=== PATIENT | female | born 1995 | race American Indian/Alaskan Native ===

== ENCOUNTER 2021-01-26 22:44 | Emergency (ER) | payer SELFPAY ==
[2021-01-26 23:40] VITALS: BP 121/75
--- NOTE | 2021-01-26 23:49 | XRay Report ---
CHEST 2 VIEWS INDICATION / CLINICAL INFORMATION: chest pain. FINDINGS: SUPPORT DEVICES: None. HEART / MEDIASTINUM: No significant abnormality. LUNGS / PLEURA: No significant pulmonary or pleural abnormality. No pneumothorax. ADDITIONAL FINDINGS: No significant additional findings. IMPRESSION: 1. No acute findings. Signer Name: Christopher Gama MD Signed: 01/26/2021 11:44 PM Workstation Name: [id number]
[2021-01-27] MEDS ORDERED: FAMOTIDINE 20 MG TAB PO ONE (01:45)
[2021-01-27] MEDS ORDERED: LIDOCAINE VISCOUS 2% 15 ML ORAL LIQD PO ONE (01:45)
[2021-01-27] MEDS ORDERED: ALUM-MAG HYDROXIDE-SIMETHICONE 200-200-20MG/5ML ORAL LIQD 30 ML PO ONE (01:45)
[2021-01-27] MEDS ORDERED: ONDANSETRON 4 MG ODT TAB PO ONE (02:16)
[2021-01-27] MEDS ORDERED: DICYCLOMINE 20 MG TAB PO ONE (02:16)
--- NOTE | 2021-01-27 02:21 | Emergency Department Report ---
ED N/V/D HPI - General Chief complaint: Chest Pain Stated complaint: CHEST PAIN/EMESIS Source: patient Mode of arrival: Ambulatory Limitations: No Limitations - History of Present Illness Initial comments: Patient is a A1 25-year-old -[place] female with no past medical history presents to the ED with complaint of acute onset persistent nausea and vomiting and epigastric pain for the last 3 hours after eating seafood at a restaurant 8 hours ago. Patient states that she has had up to 4 episodes of nausea and vomiting and that the pain in the epigastric area has been persistent and worse with vomiting with a burning sensation. Patient denies diarrhea, dysuria, urinary frequency and urgency, chest pain, shortness of breath, cough, sore throat, headache, dizziness, syncope, vaginal discharge, back pain, hematemesis or hematochezia. Patient states that she is currently on her menstrual cycle. MD complaint: nausea, vomiting, abdominal pain (epigastric pain) -: Sudden, hour(s) (3) Description of Vomiting: food contents, watery Associated Abdominal Pain: Yes (epigastric pain burning pain) Location: epigastric Radiation: none Severity: moderate Pain Scale: 6 Quality: aching, sharp Consistency: constant Improves with: medication Worsens with: vomiting Context: possible food poisoning Associated Symptoms: denies other symptoms, loss of appetite, nausea/vomiting, other (Epigastric pain). denies: myalgias, chest pain, cough, diaphoresis, fever/chills, headaches, malaise, rash, dysuria, shortness of breath, syncope, weakness - Related Data Previous Rx's Medication Instructions Recorded Last Taken Type Dicyclomine [Bentyl] 20 mg PO Q6H PRN #20 tablet 01/27/21 Unknown Rx Famotidine [Pepcid] 20 mg PO BID #30 tablet 01/27/21 Unknown Rx Ondansetron [Zofran Odt] 4 mg PO Q8HR PRN #20 tab.rapdis 01/27/21 Unknown Rx Allergies Allergy/AdvReac Type Severity Reaction Status Date / Time No Known Allergies Allergy Unverified 01/26/21 23:11 ED Review of Systems ROS: Stated complaint: CHEST PAIN/EMESIS Other details as noted in HPI Constitutional: denies: chills, fever Eyes: denies: eye pain, eye discharge, vision change ENT: denies: ear pain, throat pain Respiratory: denies: cough, shortness of breath, wheezing Cardiovascular: denies: chest pain, palpitations Endocrine: no symptoms reported Gastrointestinal: abdominal pain (Epigastric pain), nausea, vomiting. denies: diarrhea Genitourinary: denies: urgency, dysuria, discharge Musculoskeletal: denies: back pain, joint swelling, arthralgia Skin: denies: rash, lesions Neurological: denies: headache, weakness, paresthesias Psychiatric: denies: anxiety, depression Hematological/Lymphatic: denies: easy bleeding, easy bruising ED Past Medical Hx - Past Medical History Previous Medical History?: No - Surgical History Past Surgical History?: No - Social History Smoking Status: Never Smoker Substance Use Type: None - Medications Home Medications: Home Medications Medication Instructions Recorded Confirmed Last Taken Type Dicyclomine [Bentyl] 20 mg PO Q6H PRN #20 tablet 01/27/21 Unknown Rx Famotidine [Pepcid] 20 mg PO BID #30 tablet 01/27/21 Unknown Rx Ondansetron [Zofran Odt] 4 mg PO Q8HR PRN #20 tab.rapdis 01/27/21 Unknown Rx ED Physical Exam - General Limitations: No Limitations General appearance: alert, in no apparent distress - Head Head exam: Present: atraumatic, normocephalic, normal inspection - Eye Eye exam: Present: normal appearance, PERRL, EOMI Pupils: Present: normal accommodation - ENT ENT exam: Present: normal exam, normal orophraynx, mucous membranes moist, TM's normal bilaterally, normal external ear exam - Neck Neck exam: Present: normal inspection, full ROM - Respiratory Respiratory exam: Present: normal lung sounds bilaterally. Absent: respiratory distress, wheezes, rales, chest wall tenderness, accessory muscle use, prolonged expiratory - Cardiovascular Cardiovascular Exam: Present: regular rate, normal rhythm, normal heart sounds. Absent: systolic murmur, diastolic murmur, rubs, gallop - GI/Abdominal GI/Abdominal exam: Present: soft, tenderness (Palpable mild epigastric tenderness), normal bowel sounds. Absent: distended, guarding, rebound, hyperactive bowel sounds, hypoactive bowel sounds, mass - Extremities Exam Extremities exam: Present: normal inspection, full ROM, normal capillary refill - Back Exam Back exam: Present: normal inspection, full ROM. Absent: tenderness, CVA tenderness (R), CVA tenderness (L), muscle spasm, paraspinal tenderness - Neurological Exam Neurological exam: Present: alert, oriented X3, CN II-XII intact, normal gait, reflexes normal - Psychiatric Psychiatric exam: Present: normal affect, normal mood - Skin Skin exam: Present: warm, dry, intact, normal color. Absent: rash ED Course Vital Signs 01/26/21 23:16 Temperature 98.4 F Pulse Rate 81 Respiratory 20 Rate Blood Pressure 121/75 O2 Sat by Pulse 100 Oximetry ED Medical Decision Making - Medical Decision Making This is a A1 25-year-old -[place] female with no past medical history presents to the ED with complaint of acute onset persistent nausea and vomiting and epigastric pain for the last 3 hours after eating seafood at a restaurant 8 hours ago. Patient states that she has had up to 4 episodes of nausea and vomiting and that the pain in the epigastric area has been persistent and worse with vomiting with a burning sensation. Patient denies diarrhea, dysuria, urinary frequency and urgency, chest pain, shortness of breath, cough, sore throat, headache, dizziness, syncope, vaginal discharge, back pain, hematemesis or hematochezia. In the ED, patient is alert and oriented x3 and is not in any distress, is hemodynamically stable. Chest x-ray showed no acute cardiopulmonary abnormalities or pneumonitis. Patient was treated in the ED for nausea and vomiting, also given pain medications and antacids. On reevaluation, patient's pain resolved medication. Patient has not had any nausea or vomiting after being medicated with antiemetics. Patient symptoms are likely due to gastroenteritis complicating burning sensation in the epigastric area likely due to GERD complications. Patient passed oral fluid challenge in the ED with no nausea or vomiting. Patient was therefore discharged home on medications including antiemetics, antacids and antispasmodics, and was advised to maintain a clear liquid diet for 12 to 24 hours. Patient was advised to return to the ED immediately if symptoms get worse, otherwise follow-up with primary care physician in 5 to 7 days for reevaluation. - Differential Diagnosis Gastroenteritis; GERD; gastritis; dehydration; Critical care attestation.: If time is entered above; I have spent that time in minutes in the direct care of this critically ill patient, excluding procedure time. ED Disposition Clinical Impression: Viral gastroenteritis, Nausea and vomiting in adult patient GERD (gastroesophageal reflux disease) Qualifiers: Esophagitis presence: esophagitis presence not specified Qualified Code(s): K21.9 - Gastro-esophageal reflux disease without esophagitis Disposition: TO HOME OR SELFCARE Is pt being admited?: No Does the pt Need Aspirin: No Condition: Stable Instructions: Viral Gastroenteritis, Adult, [id number], Heartburn, [id number], Nausea and Vomiting, Adult, [id number], Gastroesophageal Reflux Disease, Adult, [id number] Additional Instructions: Based on your history and physical exam findings, your symptoms are likely due to a viral syndrome possibly gastroenteritis complicated by GERD. Therefore maintain a clear liquid diet for 12 to 24 hours, take medication with food, drink plenty of fluids and follow-up with your primary care physician in 5 to 7 days for reevaluation. Return to the ED immediately if symptoms get worse. Prescriptions: Dicyclomine [Bentyl] 20 mg PO Q6H PRN #20 tablet PRN Reason: Abdominal pain Famotidine [Pepcid] 20 mg PO BID #30 tablet Ondansetron [Zofran Odt] 4 mg PO Q8HR PRN #20 tab.rapdis PRN Reason: Nausea And Vomiting Referrals: [facility] [Provider Group] - 3-5 Days Forms: Work/School Release Form(ED) Time of Disposition: 02:24 Print Language: INDONESIAN
--- NOTE | 2021-01-27 09:19 | Electrocardiograph Report ---
[facility] Test Date: 2021-01-26 Test Time: 22:57:15 Pat Name: TRACIE BROWN Department: Room: Gender: F Terminal Press Operator: INOCENCIO : 1995 Requested By: KOJO CASTANO III Order Number: [id number] Reading MD: Ramesh Car Measurements Intervals [place] Rate: 75 P: 59 NV: 141 QRS: 75 QRSD: 65 T: 55 QT: 404 QTc: 452 Interpretive Statements Sinus rhythm No previous ECG available for comparison Electronically Signed On 01-27-2021 9:19:27 EDT by Ramesh Car
== END 2021-01-27 03:15 | disposition home or self-care (01) ==
LOC: ED 22:44
DX: K21.9 Gastro-esophageal reflux disease without esophagitis (principal); A08.4 Viral intestinal infection, unspecified; R11.2 Nausea with vomiting, unspecified; Z79.899 Other long term (current) drug therapy
CPT/HCPCS: 71046; 93005; Q0162